=== PATIENT | female | born 1945 | race Caucasian/White ===

== ENCOUNTER 2017-06-22 16:26 | Emergency (ER) | payer MEDICARE, BC | END 2017-06-22 16:45 | disposition left against medical advice (07) | LOC: UCCORT 16:26 | DX: R04.0 Epistaxis (principal); Z53.21 Procedure and treatment not carried out due to patient leaving prior to being seen by health care provider ==

== ENCOUNTER 2018-03-04 11:45 | Emergency (ER) | payer MEDICARE, BC ==
[2018-03-04 12:07] VITALS: BP 152/78
--- NOTE | 2018-03-04 12:19 | UC ---
UC General HPI - HPI Summary HPI Summary: pt is c/o urinary discomfort this am after intercourse last pm. no fever or abdominal pain. hx uti's and this is the same. - History of Current Complaint Stated Complaint: URINARY Time Seen by Provider: 03/04/18 12:04 Hx Obtained From: Patient Hx Last Menstrual Period: n/a Onset/Duration: Gradual Onset Timing: Constant Pain Intensity: 0 Aggravating: nothing Alleviating: nothing Associated Signs & Symptoms: Positive: Dysuria. Negative: Abdominal Pain, Back Pain, Fever - Allergy/Home Medications Allergies/Adverse Reactions: Allergies Allergy/AdvReac Type Severity Reaction Status Date / Time ibuprofen Allergy Mild Bleeding Verified 03/04/18 12:09 aspirin AdvReac Mild Bleeding Verified 03/04/18 12:08 PMH/Surg Hx/FS Hx/Imm Hx - Additional Past Medical History Additional PMH: uti's - Surgical History Surgical History: Yes Surgery Procedure, Year, and Place: CHOLECYSTECTOMY. VEIN STRIPPING. APPY - Family History Known Family History: Positive: Other - Mom CVA - Social History Occupation: Employed Part-time Lives: With Family Alcohol Use: Rare Substance Use Type: None Smoking Status (MU): Never Smoked Tobacco - Immunization History Most Recent Influenza Vaccination: yes 2017 Vaccination Up to Date: Yes Review of Systems Constitutional: Negative Skin: Negative Eyes: Negative ENT: Negative Respiratory: Negative Cardiovascular: Negative Gastrointestinal: Negative Genitourinary: Dysuria, Frequency, Urgency Motor: Negative Neurovascular: Negative Musculoskeletal: Negative Neurological: Negative Psychological: Negative Is Patient Immunocompromised?: No All Other Systems Reviewed And Are Negative: Yes Physical Exam Triage Information Reviewed: Yes Appearance: Well-Appearing Vital Signs: Initial Vital Signs Temp 98.5 F 03/04/18 12:02 Pulse 81 03/04/18 12:02 Resp 16 03/04/18 12:02 BP 152/78 03/04/18 12:02 Pulse Ox 100 03/04/18 12:02 Vital Signs Reviewed: Yes Eyes: Positive: Conjunctiva Clear ENT: Positive: Normal ENT inspection Neck: Positive: Supple, Nontender, No Lymphadenopathy Respiratory: Positive: Lungs clear, Normal breath sounds Cardiovascular: Positive: RRR, No Murmur Abdomen Description: Positive: Nontender, No Organomegaly, Soft. Negative: CVA Tenderness (R), CVA Tenderness (L), Distended, Guarding Bowel Sounds: Positive: Present Musculoskeletal: Positive: ROM Intact Neurological: Positive: Alert Psychological: Positive: Age Appropriate Behavior Skin Exam: Normal Diagnostics - Laboratory Diagnostic Studies Completed/Ordered: u/a + blood, + leukocytes Course/Dx - Course Course Of Treatment: no hx htn. BP to be recheck at f/u appointment. - Differential Dx - Multi-Symptom Provider Diagnoses: UTI Discharge - Sign-Out/Discharge Documenting (check all that apply): Discharge/Admit/Transfer - Discharge Plan Condition: Stable Disposition: HOME Prescriptions: Sulfamethox/Trimethoprim DS* [Bactrim DS 800/160 TAB*] 1 tab PO BID 3 Days #6 tab Patient Education Materials: Urinary Tract Infection in Women (ED) Referrals: Leeanna Ocasio MD [Primary Care Provider] - 7 Days - Billing Disposition and Condition Condition: STABLE Disposition: Home
== END 2018-03-04 12:35 | disposition home or self-care (01) ==
LOC: UCCORT 11:45
DX: N39.0 Urinary tract infection, site not specified (principal); Z88.6 Allergy status to analgesic agent
CPT/HCPCS: 81003; 87077; 87086; 87186; 99212; G0463